=== PATIENT | female | born 1960 | race Caucasian/White ===

== ENCOUNTER 2020-07-19 07:39 | Day surgery (SDC) | payer MEDICAID ==
[2020-07-19] MEDS ORDERED: Midazolam 1 MG/ML 2 ML SDV ONE (07:42)
[2020-07-19] MEDS ORDERED: Propofol 200 MG/20 ML SDV ONE ×2 (07:42→09:39)
[2020-07-19] MEDS ORDERED: fentaNYL 100 MCG/2 ML SDV ONE (07:42)
[2020-07-19] MEDS ORDERED: Sodium Chloride 0.9% 1,000 ML IV SCH (08:30)
--- NOTE | 2020-07-19 12:26 | OR ---
DATE OF PROCEDURE: 07/19/2020 SURGEON: Chemo Cardoso MD PROCEDURE: Colonoscopy. FINDINGS: 1. Transverse colon polyp, approximately 5 mm, completely removed using hot snare wire device. 2. Sigmoid colon polyp, approximately 5 mm, completely removed using cold biopsy forceps. COMPLICATIONS: None. PSYCH SPECIALIST: None. ANESTHESIA: MAC. PREOPERATIVE DIAGNOSIS: Family history of colorectal cancer. POSTOPERATIVE DIAGNOSIS: Family history of colorectal cancer. RISKS: Risks, benefits, alternatives, and limitations including but not limited to infection, bleeding, false positives, and false negatives were explained to the patient who wished to proceed. PROCEDURE IN DETAIL: The patient was placed in left lateral decubitus position. Digital rectal exam was performed without abnormality. Scope was introduced and advanced atraumatically to the ileocecal valve. A photo was taken of this. Scope was passed down to the ascending, transverse, descending colon and retroflexed. No evidence of old or new blood. No masses. The aforementioned polyps were identified and completely removed. No abnormal bleeding was noted after removal. No colitis. No other abnormalities. Greater than 10 minutes was spent removing the scope. The patient tolerated the procedure well. Chemo Cardoso MD /[id number]
== END 2020-07-19 10:56 | disposition home or self-care (01) ==
LOC: JP.SDS 07:39
PROVIDERS: ATTEND Surgery
DX: Z12.11 Encounter for screening for malignant neoplasm of colon (principal); K63.5 Polyp of colon; I10 Essential (primary) hypertension; J44.9 Chronic obstructive pulmonary disease, unspecified; F17.200 Nicotine dependence, unspecified, uncomplicated; E11.9 Type 2 diabetes mellitus without complications; Z80.0 Family history of malignant neoplasm of digestive organs
CPT/HCPCS: 45380; 45385; J2250; J2704; J3010; J7030

== ENCOUNTER 2023-11-04 12:50 | Emergency (ER) | payer OTHER ==
[2023-11-04] MEDS ORDERED: Sodium Chloride 0.9% 10 ML Syringe FLUSH PRN (13:54)
[2023-11-04 14:07] LABS: HEMATOCRIT 45.7 % (34.3-46.0); HEMOGLOBIN 15.8 g/dL (11.2-15.5); MEAN CORPUSCULAR HGB CONC 34.6 g/dL (31.6-35.5); MEAN CORPUSCULAR VOLUME 92.5 fL (81.4-99.0); PLATELET COUNT,PLT 307 K/uL (130-375); RED BLOOD CELL COUNT 4.94 M/uL (3.77-5.24); WHITE BLOOD CELL COUNT,WBC 12.7 K/uL (3.2-11.0)
[2023-11-04] MEDS: Sodium Chloride 0.9% 50 ML IV SCH (14:21)
[2023-11-04] MEDS: Iopamidol 612 MG/ML 100 ML Bottle IV SCH (14:21)
[2023-11-04 14:24] LABS: BAND ABSOLUTE MAN 2.54 K/uL; BAND PERCENT MAN 20 % (5-11); LYMPHOCYTES ABSOLUTE MAN 1.27 K/uL (0.8-3.3); LYMPHOCYTES PERCENT MAN 10 % (24-44); MONOCYTES ABSOLUTE MAN 1.02 K/uL (0.20-0.90); MONOCYTES PERCENT MAN 8 % (2-6); NEUTROPHILS ABSOLUTE MAN 7.87 K/uL (1.0-7.6); SEG NEUTROPHILS PERCENT MAN 62 % (36-66)
[2023-11-04 14:28] LABS: A/G RATIO 0.7 (1.2-2.2); ALANINE AMINOTRANSFERASE,ALT 75 U/L (12-78); ALBUMIN 2.9 g/dL (3.4-5.0); ALKALINE PHOSPHATASE 123 U/L (46-116); ASPARTATE AMNIOTRANSFERASE,AST 46 U/L (15-37); BILIRUBIN TOTAL 0.5 mg/dL (0.2-1.0); BLOOD UREA NITROGEN,BUN 10 mg/dL (7-18); CALCIUM 9.3 mg/dL (8.5-10.1); CARBON DIOXIDE,CO2 29 mmol/L (21-32); CHLORIDE,CL 96 mmol/L (100-108); CREATININE 0.8 mg/dL (0.6-1.0); EST CRCL DRUG DOSING (CG) 56.19 mL/min; ESTIMATED GFR 82 mL/min (>60); GLUCOSE RANDOM 105 mg/dL (74-106); PROTEIN TOTAL,TP 6.9 g/dL (6.4-8.2); SODIUM,NA 135 mmol/L (140-148)
[2023-11-04] MEDS: Sodium Chloride 0.9% 1,000 ML IV STA (14:29)
[2023-11-04] MEDS: Potassium Chloride 20 MEQ in Premix Bag 1 BAG IV ONE (15:19)
[2023-11-04] MEDS: Potassium Chloride 20 MEQ Tab.ER PO ONE (15:20)
== END 2023-11-04 17:39 | disposition home or self-care (01) ==
LOC: JP.ED 12:50
DX: K52.9 Noninfective gastroenteritis and colitis, unspecified (principal); I10 Essential (primary) hypertension; K21.9 Gastro-esophageal reflux disease without esophagitis; E78.00 Pure hypercholesterolemia, unspecified; J44.9 Chronic obstructive pulmonary disease, unspecified; F17.210 Nicotine dependence, cigarettes, uncomplicated; Z91.048 Other nonmedicinal substance allergy status; Z79.51 Long term (current) use of inhaled steroids; Z88.8 Allergy status to other drugs, medicaments and biological substances; Z90.49 Acquired absence of other specified parts of digestive tract
CPT/HCPCS: 36415; 74177; 80053; 83605; 83690; 85025; 87046; 87493; 87899; 89055; 96361; 96365; 96366; 99284; A9270; J3480; J3490; J7030; Q9967